=== PATIENT | female | born 1985 | race Caucasian/White ===

== ENCOUNTER 2017-01-06 05:55 | Emergency (ER) | payer OTHER ==
[~2017-01-06] VITALS: Ht 172.7 cm; Wt 120.0 kg
[~2017-01-06 05:55] MED LIST: IBUP-1222 PO; OXYC-302 PO
[2017-01-06 05:59] VITALS: BP 138/85
== END 2017-01-06 07:47 | disposition home or self-care (01) ==
LOC: ED 06:17
DX: J15.9 Unspecified bacterial pneumonia (principal)
CPT/HCPCS: 71020; 93005; 99284

== ENCOUNTER 2019-05-30 21:23 | Emergency (ER) | payer OTHER ==
[~2019-05-30] VITALS: Ht 172.7 cm; Wt 124.3 kg
--- NOTE | 2019-05-30 21:50 | NUR ---
MD AT BEDSIDE TO ASSESS PT
--- NOTE | 2019-05-30 21:51 | NUR ---
THIS IS A 34Y F THAT COMES IN TONIGHT FOR UPPER RESPIRATORY SYMPTOMS, PT STS SHE CAME DOWN WITH A COUGH AND SINUS CONGESTION SATURDAY. PT WAS SEEN VIA TELEMED AND GIVEN ABX AND PREDNISONE. PT STS NO IMPROVEMENT WITH MEDS. PT REPORTS FEELING CHEST TIGHTNESS WITH A COUGH THAT IS NOT PRODUCTIVE. PT CONNECTED TO MONITORING, SAVITA BARBOUR. AT BEDSIDE, CALL LIGHT IN REACH
[2019-05-30] MEDS ORDERED: SODIUM CHLORIDE 0.9% 1,000ML IVBOLUS ONE (22:00)
[2019-05-30] MEDS ORDERED: ALBUTEROL/IPRATROPIUM 2.5MG/0.5MG, 3 ML NPPB SCH (22:00)
[2019-05-30] MEDS ORDERED: methylPREDNISolone SOD SUCC 125 MG/2 ML IV ONE (22:00)
[2019-05-30] MEDS ORDERED: SODIUM CHLORIDE FLUSH 10ML SYR IVF ONE (22:00)
[2019-05-30] MEDS ORDERED: methylPREDNISolone SOD SUCC 125 MG/2 ML ONE (22:02)
[2019-05-30 22:26] LABS: BASOPHILS # (AUTO) 0.05 x10^3/uL (0-0.1); BASOPHILS % (AUTO) 1 % (0-1); EOSINOPHILS % (AUTO) 0 % (1-7); LYMPHOCYTES # (AUTO) 0.84 x10^3/uL (1-3.4); LYMPHOCYTES % (AUTO) 11 % (22-44); MD NO; MEAN CORPUSCULAR HEMOGLOBIN 27.9 pg (27.0-34.8); MEAN CORPUSCULAR HGB CONC 33.7 g/dL (32.4-35.8); MEAN CORPUSCULAR VOLUME 82.7 fL (80-100); MONOCYTES # (AUTO) 0.54 x10^3/uL (0.2-0.8); MONOCYTES % (AUTO) 7 % (2-9); NEUTROPHILS # (AUTO) 6.57 x10^3/uL (1.8-6.8); NEUTROPHILS % (AUTO) 82 % (42-75); PLATELET COUNT 278 x10^3/uL (130-400); RED BLOOD COUNT 4.67 x10^6/uL (3.82-5.3); RED CELL DISTRIBUTION WIDTH 14.9 % (9.6-15.2)
[2019-05-30 22:37] LABS: ALANINE AMINOTRANSFERASE 16 U/L (12-78); ALBUMIN 3.8 g/dL (3.4-5.0); ANION GAP 6 mmol/L (5-15); CALCIUM 9.3 mg/dL (8.5-10.1); CHLORIDE 111 mmol/L (98-107)
[2019-05-30 22:37] LABS: RAPID INFLUENZA A Negative (Negative); RAPID INFLUENZA B Negative (Negative)
[2019-05-30 22:40] LABS: ALKALINE PHOSPHATASE 72 U/L (45-117); BILIRUBIN,TOTAL 0.5 mg/dL (0.2-1.0); CREATININE 1.03 mg/dL (0.55-1.02)
--- NOTE | 2019-05-30 22:46 | NUR ---
PIV STARTED, PT MEDICATED PER MAR, BOLUS INFUSING, NAND.
[2019-05-30] MEDS ORDERED: ALBUTEROL/IPRATROPIUM 2.5MG/0.5MG, 3 ML ONE (22:57)
--- NOTE | 2019-05-30 23:07 | NUR ---
AT BEDSIDE TO REASSESS PT
[2019-05-30 23:10] VITALS: BP 137/62
--- NOTE | 2019-05-30 23:21 | NUR ---
RESPIRATORY AT BEDSIDE FOR BREATHING TX
--- NOTE | 2019-05-30 23:39 | NUR ---
Patient/Caregiver given discharge instructions and they have confirmed that they understand the instructions. Patient ambulatory with steady gait. piv dc prior to pt leaving facility
== END 2019-05-30 23:41 | disposition home or self-care (01) ==
LOC: ED 23:27
DX: J20.9 Acute bronchitis, unspecified (principal); B34.9 Viral infection, unspecified; R00.0 Tachycardia, unspecified; R07.89 Other chest pain
CPT/HCPCS: 36415; 71046; 80053; 85025; 87400; 93005; 94640; 96374; 99285; J2930; J7030; J7620

== ENCOUNTER 2020-11-19 23:15 | Emergency (ER) | payer OTHER ==
[~2020-11-19] VITALS: Ht 172.7 cm; Wt 127.0 kg
[~2020-11-19 23:15] MED LIST changes: -OXYC-302 PO; +OXYC1TAB14 PO
[2020-11-20 00:28] LABS: BASOPHILS % (AUTO) 1 % (0-1); EOSINOPHILS % (AUTO) 2 % (1-7); LYMPHOCYTES % (AUTO) 26 % (22-44); MEAN CORPUSCULAR HEMOGLOBIN 28.7 pg (27.0-34.8); MEAN CORPUSCULAR HGB CONC 34.1 g/dL (32.4-35.8); MEAN PLATELET VOLUME 7.7 fL (7.4-10.4); MONOCYTES % (AUTO) 5 % (2-9); NEUTROPHILS % (AUTO) 66 % (42-75); PLATELET COUNT 324 x10^3/uL (130-400); RED BLOOD COUNT 4.81 x10^6/uL (3.82-5.3); RED CELL DISTRIBUTION WIDTH 15.3 % (9.6-15.2)
[2020-11-20 00:38] LABS: ANION GAP 8 mmol/L (5-15); CALCIUM 9.1 mg/dL (8.5-10.1); CHLORIDE 107 mmol/L (98-107)
[2020-11-20 00:44] LABS: TROPONIN I < 0.015 ng/mL (0.000-0.045)
--- NOTE | 2020-11-20 02:26 | NUR ---
pt presents to the ed with chest pain at the sternum area. pt states pain started in the morning of 11/19/20 and lessened some with Alieve but came right back. pt has history of COVID back in May 2019, and has lingering effects from it still. pt states she is due for an ECHO next week and has had heart palp. in the past. pt in gown, resting on gurney, and placed on continuous monitoring.
--- NOTE | 2020-11-20 03:00 | NUR ---
pt resting on gurney, denies needs at this time.
[2020-11-20 03:05] VITALS: BP 129/69
--- NOTE | 2020-11-20 04:00 | NUR ---
pt resting on gurney, denies needs at this time.
--- NOTE | 2020-11-20 05:08 | NUR ---
Patient given discharge instructions and they have confirmed that they understand the instructions. Patient ambulatory with steady gait.
== END 2020-11-20 05:11 | disposition home or self-care (01) ==
LOC: ED 23:45
DX: R07.89 Other chest pain (principal)
CPT/HCPCS: 36415; 71046; 80048; 82040; 84484; 84703; 85025; 85379; 93005; 99285